=== PATIENT | male | born 1990 ===

== ENCOUNTER 2017-12-20 11:56 | Emergency (ER) | payer SELFPAY ==
[2017-12-20 11:56] VITALS: BMI 28.7
--- NOTE | 2017-12-20 13:10 | ED PDOC ---
HPI: Psych/Substance Abuse Time Seen by Provider: 12/20/17 12:10 Chief Complaint (Nursing): Substance Abuse Chief Complaint (Provider): substance abuse History Per: Patient, Family (mother) History/Exam Limitations: no limitations Onset/Duration Of Symptoms: Hrs (today) Current Symptoms Are (Timing): Still Present Suicide/Self Injury Attempted (Context): None Involuntary Hold By: None Additional Complaint(s): Apolinar Sykes is a 27 year old male, with a past medical history of asthma, who presents to the emergency department via EMS for substance abuse onset prior to arrival. Per mother, she received a call from patient's workplace and was told he was acting bizarre and running around, someone at work called the ambulance. Mother states patient was discharged last night from [facility] for PCP use. Patient admits to using PCP last night but denies any substance abuse this morning. He denies any medical complaints. PMD: None provided. Past Medical History Reviewed: Historical Data, Nursing Documentation, Vital Signs Vital Signs: Last Vital Signs Temp 99.5 F 12/20/17 11:59 Pulse 116 H 12/20/17 11:59 Resp 21 12/20/17 11:59 BP 137/82 12/20/17 11:59 Pulse Ox 97 12/20/17 11:59 - Medical History PMH: Asthma Denies: Chronic Kidney Disease - Surgical History Surgical History: No Surg Hx - Family History Family History: States: No Known Family Hx - Immunization History Hx Tetanus Toxoid Vaccination: No Hx Influenza Vaccination: No Hx Pneumococcal Vaccination: No - Home Medications Home Medications: Ambulatory Orders Medication Instructions Recorded Gabapentin [Neurontin] 800 mg PO DAILY 06/20/15 Unobtainable 12/20/17 - Allergies Allergies/Adverse Reactions: Allergies Allergy/AdvReac Type Severity Reaction Status Date / Time No Known Allergies Allergy Verified 06/08/16 17:20 Review of Systems ROS Statement: Except As Marked, All Systems Reviewed And Found Negative Physical Exam - Reviewed Nursing Documentation Reviewed: Yes Vital Signs Reviewed: Yes - Physical Exam Appears: Positive for: Well (comfortable), Non-toxic, No Acute Distress Head Exam: Positive for: ATRAUMATIC, NORMOCEPHALIC Skin: Positive for: Normal Color, Warm, Dry Eye Exam: Positive for: Normal appearance, EOMI Neck: Positive for: Painless ROM Cardiovascular/Chest: Positive for: Regular Rate, Rhythm Respiratory: Negative for: Respiratory Distress Extremity: Positive for: Normal ROM (upper and lower extremities) Neurologic/Psych: Positive for: Alert, Oriented - ECG O2 Sat by Pulse Oximetry: 97 (RA) Pulse Ox Interpretation: Normal Medical Decision Making Medical Decision Making: Initial Impression: substance abuse Initial Plan: --Alcohol serum --Drug screen, urine --Crisis evaluation --Reevaluation 14:50 -Patient is medically clear. Per Dr. Kaye, patient diagnosed with substance abuse and is psychiatrically clear for discharge. Scribe Attestation: Documented by Edwin Serrano, acting as a scribe for Royce Chiu MD Provider Scribe Attestation: All medical record entries made by the Scribe were at my direction and personally dictated by me. I have reviewed the chart and agree that the record accurately reflects my personal performance of the history, physical exam, medical decision making, and the department course for this patient. I have also personally directed, reviewed, and agree with the discharge instructions and disposition. Disposition - Clinical Impression Clinical Impression: PCP (phencyclidine) abuse - Patient ED Disposition Is Patient to be Admitted: No Doctor Will See Patient In The: Office Counseled Patient/Family Regarding: Studies Performed, Diagnosis, Need For Followup - Disposition Referrals: [facility] [Outside] Disposition: Routine/Home Disposition Time: 14:52 Condition: GOOD Additional Instructions: Follow up with the resources you were given in ED. Instructions: Drug Abuse and Drug Addiction (DC)
[2017-12-20 13:55] LABS: BARBITURATES, UR NEGATIVE (NEGATIVE); BENZODIAZEPINES, UR NEGATIVE (NEGATIVE); OPIATES, UR NEGATIVE (NEGATIVE); PHENCYCLIDINE, UR POSITIVE (NEGATIVE)
[2017-12-20 15:02] VITALS: BP 125/79; PULSE 81; RESP 16; TEMP 97.9
[2017-12-20 18:17] VITALS: O2SAT 97
== END 2017-12-20 15:04 | disposition home or self-care (01) ==
LOC: H.ER 11:56
DX: F16.10 Hallucinogen abuse, uncomplicated (principal); J45.909 Unspecified asthma, uncomplicated
CPT/HCPCS: 99284; G0480